=== PATIENT | female | born 1985 | race Two or more races ===

== ENCOUNTER → 2024-02-14 | Outpatient (CLI) | payer MEDICAID, SELFPAY ==
--- NOTE | 2024-02-14 15:00 | XR_ITS ---
Examination: Pelvic ultrasound, transabdominal, complete Technique: Transabdominal ultrasound of the pelvis performed using grayscale imaging Date and time of exam: February 14, 2024 1516 hours INDICATIONS: Irregular heavy menses several years FINDINGS: Uterus 10.9 x 4.8 x 7.3 cm anteverted Uterine fundal mass 8 x 6 x 8 mm uterine body mass 22 x 15 x 21 mm Endometrial stripe 0.1 cm Right ovary 3.8 x 1.7 x 3.5 cm arterial flow 20 mm follicular cyst Left ovary 3.4 x 1.7 x 2.1 cm arterial flow small follicles IMPRESSION: Small uterine areas of fibroid degeneration as above Normal endometrial stripe
== END | disposition home or self-care (01) ==
PROVIDERS: PCP Physician Assistant; Referring Provider Physician Assistant; Visit Provider Physician Assistant
DX: D25.9 Leiomyoma of uterus, unspecified (principal)
CPT/HCPCS: 76856

== ENCOUNTER 2024-03-12 18:20 | Emergency (ER) | payer MEDICAID, SELFPAY ==
--- NOTE | 2024-03-12 19:42 | EDRME_ITS ---
Rapid Medical Screening Exam [facility] Arrival date/time: 03/12/24 18:20 38F with history of anemia 2/2 vaginal bleeding presents to ED with 1 week of heavy vaginal bleeding and weakness. Patient is waiting for insurance approval for hysterectomy. Patient also has L calf numbness, but no pain or swelling. Patient was told she could receive some shot to help stop the bleeding. Chief Complaint: Vaginal Bleeding Vital signs: Vital Signs Temperature 98.4 F 03/12/24 20:08 Pulse Rate 95 03/12/24 20:08 Respiratory Rate 19 03/12/24 20:08 Blood Pressure 129/94 H 03/12/24 20:08 Pulse Oximetry (%) 100 03/12/24 20:08 Oxygen Delivery Method Room Air 03/12/24 20:08
[2024-03-12 20:08] VITALS: BP 129/94; PULSE 95; RESP 19; TEMP 36.9; O2SAT 100
[2024-03-12 20:14] VITALS: BMI 24.7
[2024-03-12 21:07] LABS: Basophils % (Auto) 0 % (0-2.5); Eosinophils # (Auto) 0.2 Thou/mm3 (0.0-0.5); Eosinophils % (Auto) 3 % (0-10); Hematocrit 27.8 % (36.0-46.0); Immature Granulocytes % (Auto) 0 % (0-0); Immature Granulocytes Auto 0.02 Thou/mm3 (0.00-0.00); Lymphocytes # (Auto) 2.7 Thou/mm3 (1.0-4.8); Lymphocytes % (Auto) 40 % (10-50); Mean Corpuscular HGB Conc 30.9 g/dl (31.0-37.0); Mean Corpuscular Hemoglobin 23.5 pg (25.0-35.0); Mean Corpuscular Volume 76 fL (80-100); Monocytes # (Auto) 0.6 Thou/mm3 (0.0-0.8); Monocytes % (Auto) 10 % (0-12); Neutrophils # (Auto) 3.1 Thou/mm3 (1.8-7.7); Neutrophils % (Auto) 47 % (37-80); Nucleated Red Blood Cell % 0 /100 WBC (0); Platelet Count 428 Thou/mm3 (140-440); RDW Standard Deviation 58.6 fL (36.4-46.3); Red Blood Count 3.66 Miln/mm3 (4.00-5.20); White Blood Count 6.6 Thou/mm3 (3.6-11.0)
[2024-03-12 21:21] LABS: Hemoglobin 8.6 g/dL (12.0-16.0)
[2024-03-12 21:22] LABS: Alanine Aminotransferase 13 U/L (10-49); Albumin, Serum 4.6 gm/dL (3.5-5.0); Albumin/Globulin Ratio 1.7 (1.2-2.2); Alkaline Phosphatase 43 U/L (46-116); Anion Gap 10 (7-16); Aspartate Amino Transferase 22 U/L (0-34); BUN/Creatinine Ratio 17 Ratio (12-20); Bilirubin,Total 0.8 mg/dL (0.3-1.2); Blood Urea Nitrogen 10 mg/dL (9-23); Calcium 9.1 mg/dL (8.3-10.6); Calcium (Corrected) 9.1 mg/dL (8.5-10.1); Carbon Dioxide 24.8 mMol/L (20.0-31.0); Chloride 105 mMol/L (98-107); Creatinine (Component) 0.6 mg/dL (0.6-1.3); Estimated Creatinine Clearance 108.4 mL/min (>60); Globulin 2.7 gm/dL (2.3-3.5); Glucose 87 mg/dL (74-106); Osmolality,Calculated 277 (275-295); Potassium 3.7 mMol/L (3.4-5.1); Sodium 140 mMol/L (136-145); Total Protein 7.3 gm/dL (5.7-8.2); eGFR > 60 See Note
--- NOTE | 2024-03-12 22:03 | PD.EDVAGBL ---
ED OB Contraction Preg RMI/HPI General Chief complaint: Vaginal Bleeding Stated complaint: severe vaginal bleed x7 days, 1 pad/hr Source: patient Arrival date/time: 03/12/24 18:20 Mode of arrival: ambulatory Limitations: no limitations RME / HPI RME / HPI Narrative: 03/12/24 18:20 38F with history of anemia 2/2 vaginal bleeding presents to ED with 1 week of heavy vaginal bleeding and weakness. Patient is waiting for insurance approval for hysterectomy. Patient also has L calf numbness, but no pain or swelling. Patient was told she could receive some shot to help stop the bleeding. Dr. Noble?s Main ED Evaluation: A 38-year-old ambulatory female with a history of severe menorrhagia, anemia requiring blood transfusion, and abnormal uterine bleeding due to anovulatory cycles, presents to the emergency department with severe uterine bleeding ongoing for the past 7 days. The patient describes the bleeding as comparable to a miscarriage and reports wearing and saturating two adult diapers. She also experiences menstrual-type pain, including lower back pain, which was partially relieved with Tylenol taken at 4 PM. She reports a chronic history of heavy bleeding spanning several years. She consulted Dr. Estrada yesterday and decided to proceed with a hysterectomy, though the procedure had been previously postponed due to the pandemic. A recent ultrasound (02/14/24) revealed the presence of small uterine fibroids. Additionally, the patient shares that she attended her sister?s today, who at the age of 56 from Stage IV pancreatic cancer. Related Data Home Medications ?Medication ?Instructions ?Recorded ?Confirmed lisinopril 20 1 tab PO QDAY 03/13/21 03/13/21 mg-hydrochlorothiazide 12.5 mg tablet Allergies Allergy/AdvReac Type Severity Reaction Status Date / Time No Known Allergies Allergy Verified 03/12/24 18:22 Review of Systems Review of Systems Systems Reviewed: All systems reviewed, normal except as documented Past Medical History Past Medical History NEUROLOGIC: Negative Neurological Disorders CARDIAC: Positive Cardiac Disorders and Hypertension; Negative Congestive Heart Failure RESPIRATORY: Negative Chronic Obstructive Pulmonary Disease (COPD) GASTROINTESTINAL: Negative Gastrointestinal Disorders GENITOURINARY: Negative Genitourinary Disorders or Renal Disease REPRODUCTIVE: Positive Previous Pregnancies (2); Negative Endometriosis or Pelvic Inflammatory Disease MUSCULOSKELETAL: Negative Musculoskeletal Disorders ENDOCRINE: Negative Endocrine Disorders, Diabetes Mellitus Type 1 or Diabetes Mellitus Type 2 HEMATOLOGIC: Positive Anemia OTHER HISTORY: Positive Blood Transfusions; Negative Hospitalization, Autoimmune Disease, Down Syndrome, Developmental Delay, Falls, Blood Transfusion Reaction, Anesthesia Reactions, Chicken Pox, Measles, Mumps or Cancer Family History FAMILY HISTORY: Positive Family Gastrointestinal Problems (mother liver cirrhosis); Negative Family Respiratory Disorders, Family Cardiac Disorders or Family Cancer Social History SMOKING STATUS: Never smoker SECOND HAND EXPOSURE: No ED Exam Narrative Physical exam: GENERAL APPEARANCE: alert and oriented x 4, well-developed, well-nourished, no acute distress VITALS: All vitals were reviewed and the pulse ox is 100% on room air, which is normal according to my interpretation. HEENT: Normocephalic, atraumatic; pupils equal, round, reactive to light; EOMI; mucous membranes pink, moist; oropharynx clear NECK: Supple LUNGS: CTABL; no wheezes, no rales, no rhonchi HEART: Regular rate, regular rhythm; normal S1, S2; no murmurs ABDOMEN: non distended; normal BS; soft, no tenderness, no guarding, no rebound; no masses, no organomegaly, no hernia BACK: no CVA tenderness EXTREMITIES: atraumatic; no edema NEUROLOGIC: awake; alert and oriented x4; cranial nerves II-XII grossly intact; no focal sensory or motor deficits PSYCHIATRIC: appropriate mood and affect SKIN: warm, dry, normal color; no rashes General Limitations: Present no limitations Course Course Course Narrative: 2306: Patient's heart rate went from 88 (lying) to 119 (standing). 2L NS IVF ordered. 0135: Patient's heart rate improved and is now 105 when standing. Patient is stable to be discharged home. Quality Measures none Orders Category Date Time Status Miscellaneous Nursing Order NOW Care 03/12/24 22:46 Completed Orthostatic Vitals NOW Care 03/12/24 22:06 Completed CBC Stat Lab 03/12/24 20:18 Completed CMP [Comprehensive Metabolic Panel] Stat Lab 03/12/24 20:18 Completed HCG Qualitative,Urine Stat Lab 03/12/24 22:25 Completed HCG,Qualitative Serum Stat Lab 03/12/24 20:18 Completed INR [Prothrombin Time with INR] Stat Lab 03/12/24 20:18 Completed PTT [Partial Thromboplastin Time] Stat Lab 03/12/24 20:18 Completed Type and Screen Stat Lab 03/12/24 20:18 Completed Acetaminophen Tab [Tylenol ES Tab] Med 03/12/24 22:05 Discontinued 1,000 mg PO X1 ONE Ibuprofen Tab [Motrin Tab] Med 03/12/24 22:05 Discontinued 600 mg PO X1 ONE Sodium Chloride 0.9% 1000 ml [Ns] 1,000 ml Med 03/12/24 23:07 Discontinued IV 999 mls/hr Sodium Chloride 0.9% 1000 ml [Ns] 1,000 ml Med 03/12/24 23:07 Discontinued IV 999 mls/hr Vital Signs Vital signs: Vital Signs Temperature 98.4 F 03/12/24 20:08 Pulse Rate 95 03/12/24 20:08 Respiratory Rate 19 03/12/24 20:08 Blood Pressure 129/94 H 03/12/24 20:08 Pulse Oximetry (%) 100 03/12/24 20:08 Oxygen Delivery Method Room Air 03/12/24 20:08 Vaginal Bleeding MDM Narrative MDM Narrative: Scribe Attestation: IMaximiliano am scribing for and in the presence of Dr. Noble. Provider Notation: Although this document has been carefully reviewed, there may still be some phonetic and other typographical errors. These errors are purely grammatical due to imperfections in the software program and should not be construed in any way to compromise the substance of the patient's medical care during this visit. Patient data External records reviewed:: [facility] previous records Clinical information provided by:: patient Social determinants that could affect healthcare access:: none Patient has the following chronic illnesses:: See PMH How is presenting disease/condition affected by chronic disease/condition?: uneffected by Evaluation data The following diagnostics were reviewed and interpreted by me:: lab results Lab and/or radiology exams considered but not ordered:: None Interpretation Summary: WBC count is normal, HnH is 8.6/27.8, Platelets are normal, PTT is normal, PT and INR are normal, CMP is normal, HCG is negative, according to my interpretation. Medications / Prescriptions Medications or Prescriptions considered but not ordered:: None Medication administrations:: Medication Administration History Discontinued Medications Acetaminophen (Acetaminophen 500 Mg Tablet) 1,000 mg PO X1 ONE Stop: 03/12/24 22:06 Last Admin: 03/12/24 22:49 Dose: 1,000 mg Documented By: AMMON Sodium Chloride (Ns) 1,000 mls @ 999 mls/hr IV .Q1H1M ONE Stop: 03/13/24 00:07 Last Infusion: 03/13/24 00:28 Dose: Infused Documented By: Admin: 03/12/24 23:24 Dose: 999 mls/hr Documented By: AMMON Sodium Chloride (Ns) 1,000 mls @ 999 mls/hr IV .Q1H1M ONE Stop: 03/13/24 00:07 Last Infusion: 03/13/24 01:21 Dose: Infused Documented By: Admin: 03/12/24 23:26 Dose: 999 mls/hr Documented By: AMMON Ibuprofen (Ibuprofen Tab 600 Mg Tablet) 600 mg PO X1 ONE Stop: 03/12/24 22:06 Last Admin: 03/12/24 22:49 Dose: 600 mg Documented By: AMMON As above, if any Consultations Consultation(s) initiated? (list below): No Diagnosis Vaginal Bleeding Differential Diagnosis: other (Ectopic , Placenta abruption, Fibroid bleeding, Dysfunctional uterine bleeding) Most likely diagnosis given after review of the tests above:: See clinical impression below Admission Indicated Admission indicated?: not indicated Admission Request Was there a request for admission?: No Disposition Plan Disposition Plan: Discharge Discharge Attestation Discharge Attestation: The patient and all family members were given an opportunity to ask questions and understood the discharge instructions. Discharge instructions specifically effects, indications for sooner follow up or return to the emergency department, and the expected course of current diagnosis. Patient condition: Stable Discharge Plan Plan Patient Disposition: HOME (Self Care) Disposition Comment: Stable for discharge Patient condition on transfer: Stable Prescriptions/Referrals Prescriptions/Med Rec: No Action lisinopril-hydrochlorothiazide 20-12.5 mg tablet 1 tab PO QDAY Referrals: Sav Scott [Primary Care Provider] - In 1 week Problem List Clinical Impression: Vaginal bleeding, Abnormal uterine bleeding (AUB) Patient/Caregiver Discharge Instructions Discharge Activity: activity as tolerated Education Materials: ED Dysfunctional Uterine Bleeding, ED MENSTRUAL CRAMPING Additional Instructions: Please return to the emergency department if you have any worsening or any further medical problems Otherwise you should follow-up with your primary care doctor within the next several days. It is important that you follow-up with your [employer] to further discuss the possibility that you need a hysterectomy. Print Language: [place] Stand Alone Forms: Norma Award Info., Patient Portal Info Letter
[2024-03-12 22:22] LABS: HCG,Qualitative Serum Negative
[2024-03-12 22:39] LABS: Partial Thromboplastin Time 25.6 Seconds (22.0-36.0); Prothrombin Time 11.3 Seconds (9.0-12.2)
[2024-03-12 22:48] LABS: HCG Qualitative,Urine Negative
[2024-03-12] MEDS: ACETAMINOPHEN 500 MG TABLET 1000 MG PO (22:49)
[2024-03-12] MEDS: IBUPROFEN TAB 600 MG TABLET PO (22:49)
[2024-03-12 22:57] VITALS: BP 118/74; BP 130/92; BP 134/82; PULSE 105; PULSE 119; PULSE 88
[2024-03-12] MEDS: SODIUM CHLORIDE 0.9% 1000 ML 1,000 ML 999 ML IV ×2 (23:24→23:26)
[2024-03-13 01:24] VITALS: BP 108/73; BP 122/83; BP 91/57; PULSE 105; PULSE 87; PULSE 96
== END 2024-03-13 01:51 | disposition home or self-care (01) ==
PROVIDERS: Physician Assistant; Emergency Provider Emergency Medicine; PCP Physician Assistant
DX: N93.9 Abnormal uterine and vaginal bleeding, unspecified (principal)
CPT/HCPCS: 36415; 80053; 81025; 84703; 85025; 85610; 85730; 86850; 86900; 86901; 96360; 96361; 99284; J7030; A9270